=== PATIENT | male | born 1985 | race Caucasian/White ===

== ENCOUNTER 2019-03-12 12:55 | Emergency (ER) | payer SELFPAY ==
[~2019-03-12] VITALS: Ht 182.9 cm; Wt 72.7 kg
[2019-03-12 12:59] VITALS: BP 138/91; TEMP 98.6
[2019-03-12] MEDS ORDERED: AMOXICILLIN 50500 MG PO (13:24)
[2019-03-12] MEDS ORDERED: MOTRIN 800800 MG/TAB PO (13:24)
[2019-03-12 13:31] VITALS: PULSE 62
== END 2019-03-12 13:31 | disposition home or self-care (01) ==
LOC: COL.ER 12:55
DX: K02.9 Dental caries, unspecified (principal)